=== PATIENT | female | born 2000 | race Caucasian/White ===

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

== ENCOUNTER 2022-01-10 20:43 | Emergency (ER) | payer BC, MEDICAID ==
[~2022-01-10] VITALS: Ht 170.2 cm; Wt 63.5 kg
[~2022-01-10 20:43] MED LIST: SULF1TAB48 PO
--- NOTE | 2022-01-10 20:57 | NUR ---
After being triaged, patient was placed back in the waiting room due to no beds available in the ER.
--- NOTE | 2022-01-10 23:22 | NUR ---
Dr Arizmendi into eval patient in the hallway due to no beds available in the ER.
--- NOTE | 2022-01-10 23:48 | NUR ---
Patient discharged to home in stable condition. Written and verbal after care instructions given. Patient verbalizes understanding of instructions. Stressed follow up or return to ER for worsening s/s.
[2022-01-10 23:49] VITALS: BP 142/99
== END 2022-01-10 23:49 | disposition home or self-care (01) ==
LOC: ER 20:43
DX: S06.0X0A Concussion without loss of consciousness, initial encounter (principal); R40.2362 Coma scale, best motor response, obeys commands, at arrival to emergency department; R40.2142 Coma scale, eyes open, spontaneous, at arrival to emergency department; R40.2252 Coma scale, best verbal response, oriented, at arrival to emergency department; W22.8XXA Striking against or struck by other objects, initial encounter; Y92.511 Restaurant or cafe as the place of occurrence of the external cause; Y99.0 Civilian activity done for income or pay
CPT/HCPCS: A4663